=== PATIENT | male | born 1985 | race Caucasian/White ===

== ENCOUNTER 2024-03-09 23:51 | Emergency (ER) | payer OTHER, SELFPAY ==
[2024-03-09 23:55] VITALS: BP 135/76; PULSE 99; TEMP 36.7; O2SAT 99; BMI 27.1
--- NOTE | 2024-03-10 00:29 | ED.SKABFB1 ---
HPI - Skin/Abscess/Foreign Bdy General Chief complaint: Skin/Abscess/Foreign Body Stated complaint: bite - L leg Time Seen by Provider: 03/10/24 00:02 Source: patient and friend Related Data Home Medications ?Medication ?Instructions ?Recorded ?Confirmed buprenorphine 8 mg-naloxone 2 mg 1 film buccal BID 03/09/24 03/09/24 sublingual film Allergies Allergy/AdvReac Type Severity Reaction Status Date / Time No Known Drug Allergies Allergy Verified 03/09/24 23:58 Exam Constitutional Vital Signs, click to edit/add: Last Vital Signs Temp 98.1 F 03/09/24 23:55 Pulse 99 H 03/09/24 23:55 Resp 18 03/09/24 23:55 BP 135/76 03/09/24 23:55 Pulse Ox 99 03/09/24 23:55 Course Vital Signs Vital signs: Vital Signs Temperature 98.1 F 03/09/24 23:55 Pulse Rate 99 H 03/09/24 23:55 Respiratory Rate 18 03/09/24 23:55 Blood Pressure 135/76 03/09/24 23:55 Pulse Oximetry 99 03/09/24 23:55 Temperature 98.1 F 03/09/24 23:55 Pulse Rate 99 H 03/09/24 23:55 Respiratory Rate 18 03/09/24 23:55 Blood Pressure 135/76 03/09/24 23:55 Pulse Oximetry 99 03/09/24 23:55 Discharge Plan Discharge Stand Alone Forms: Portal Instructions Chief Complaint: Skin/Abscess/Foreign Body Clinical Impression: Cellulitis, Cellulitis and abscess of left leg Patient Disposition: Home, Self-Care Time of Disposition Decision: 00:27 Condition: Good Prescriptions / Home Meds: No Action buprenorphine-naloxone 8-2 mg film 1 film buccal BID Print Language: Singaporean Instructions: Cellulitis (ED), Abscess (ED) Additional Instructions: Use warm soaks and Icthammol ointment as discussed. Use antibiotics until gone. Return to the ED for fever, worsening redness,swelling, red lines up your thigh or any concerns.
--- NOTE | 2024-03-10 00:32 | ED_ITS ---
HPI - Skin/Abscess/Foreign Bdy General Chief complaint: Skin/Abscess/Foreign Body Stated complaint: bite - L leg Time Seen by Provider: 03/10/24 00:02 Source: patient and friend History of Present Illness HPI narrative: This 38-year-old male presents for evaluation of redness pain and swelling and purulent drainage from an area at his distal femur, medial and proximal to the left knee. The patient states he was recently cleaning out his car and there were spiders in his car. He thinks he may have been bit by a spider. Initially he stated that he had a red swollen area on the knee that opened up and there was a black hole in this area. It then spread to the surrounding area with multiple purulent filled papules adjacent to the initial area that was black and had a hole in it. The patient does have a history of IV substance abuse. He has never been a wrestler. He has not had any fever or body aches. He states that he has been using hot water on it in the shower and over the course of the past several days it has opened up and is draining purulent drainage. He does not have any body aches. He does not have a history of MRSA. There are no additional areas of skin infection. He does not have any sore throat or oral infection. He has no chest pain or shortness of breath. Related Data Home Medications ?Medication ?Instructions ?Recorded ?Confirmed buprenorphine 8 mg-naloxone 2 mg 1 film buccal BID 03/09/24 03/09/24 sublingual film Allergies Allergy/AdvReac Type Severity Reaction Status Date / Time No Known Drug Allergies Allergy Verified 03/09/24 23:58 Review of Systems ROS Status of ROS 10 or more systems reviewed and unremark able except as noted in history and below Exam Narrative Exam Narrative: Nurses note and vital signs reviewed and patient is not hypoxic. General: The patient appears well and in no apparent distress. Patient is resting comfortably on cart. Skin: Warm, dry, no pallor noted. There is no rash noted. Healed needle track sarkar on both upper extremities.See note in Musculoskeletal section Head: Normocephalic, atraumatic Eye: Normal conjunctiva, no drainage, EOMI. PERRL Ears, Nose, Mouth, and Throat: oral mucosa is moist. Nares patent. Mouth without vesicles. Cardiovascular: Regular Rate and Rhythm, no murmurs, rubs or gallops appreciated Respiratory: Patient is in no distress, no accessory muscle use, lungs are clear to auscultation, no wheezing, rales or rhonchi Back: non-tender, no CVA tenderness bilaterally to percussion. Musculoskeletal: at the left distal femur, medial aspect there is an anival roximately 6cm x 4 cm area of redness with mild induration, in the center of this area is approx 6 pustules that are draining purulent material (this was cultured). The left knee is not tender, erythematous and does not appear to be involved in this skin infection Neurological: A&O x4, normal speech Psychiatric: Cooperative Constitutional Vital Signs, click to edit/add: Last Vital Signs Temp 98.1 F 03/09/24 23:55 Pulse 99 H 03/09/24 23:55 Resp 18 03/09/24 23:55 BP 135/76 03/09/24 23:55 Pulse Ox 99 03/09/24 23:55 Course Vital Signs Vital signs: Vital Signs Temperature 98.1 F 03/09/24 23:55 Pulse Rate 99 H 03/09/24 23:55 Respiratory Rate 18 03/09/24 23:55 Blood Pressure 135/76 03/09/24 23:55 Pulse Oximetry 99 03/09/24 23:55 Temperature 98.1 F 03/09/24 23:55 Pulse Rate 99 H 03/09/24 23:55 Respiratory Rate 18 03/09/24 23:55 Blood Pressure 135/76 03/09/24 23:55 Pulse Oximetry 99 03/09/24 23:55 MDM - Skin/Abscess/Foreign Bdy MDM Narrative Medical decision making narrative: This 38-year-old male with a history of substance abuse including IVDU since for evaluation of one week of redness, pain, swelling and now development of purulent drainage at his distal left femur just proximal to his knee. He states the area started out looking like a spider bite with a black hole in the center. He states the area was more swollen and tender and after several days of using hot water in the shower has become what appears to be an area of cellulitis wiith a central area of abscess. There are approximately 6 purulent filled pustules in the center of this area. The skin was cleaned with Betadine and a moderate amount of purulent drainage was expressed and cultured. Sterile dry dressing was then placed by myself. I suggested that an IV placed for a dose of IV antibiotics and routine lab work but the patient declined stating that since he has a history of IV drug use it was too difficult to get a line in him. He was medicated with a dose of oral clindamycin. Culture of the infection is pending although I explained to him that I suspect that it is MRSA. He will be discharged home with wound care supplies such as 2 containers of 4 x 4's and extra kerlex. He was instructed to return for fever, worsening pain, lymphangitic streaking or any concerns. Discharge Plan Discharge Stand Alone Forms: Portal Instructions Chief Complaint: Skin/Abscess/Foreign Body Clinical Impression: Cellulitis and abscess of left leg Patient Disposition: Home, Self-Care Time of Disposition Decision: 00:27 Condition: Good Prescriptions / Home Meds: No Action buprenorphine-naloxone 8-2 mg film 1 film buccal BID Print Language: Cuban Instructions: Cellulitis (ED), Abscess (ED) Additional Instructions: Use warm soaks and Icthammol ointment as discussed. Use antibiotics until gone. Return to the ED for fever, worsening redness,swelling, red lines up your thigh or any concerns.
[2024-03-10] MEDS: CLINDAMYCIN HCL 150 MG CAPSULE 600 MG PO (00:49)
== END 2024-03-10 01:05 | disposition home or self-care (01) ==
PROVIDERS: Emergency Provider Emergency Medicine; Family Provider Family Medicine
DX: L03.116 Cellulitis of left lower limb (principal); F19.11 Other psychoactive substance abuse, in remission
CPT/HCPCS: 87070; 87150; 87186; 87205; 99283

== ENCOUNTER 2024-05-02 20:29 | Emergency (ER) | payer OTHER, SELFPAY ==
[2024-05-02 20:45] VITALS: BP 152/93; PULSE 85; TEMP 36.5; O2SAT 96; BMI 25.8
--- NOTE | 2024-05-02 20:53 | ED.EYEPROB1 ---
HPI - Eye Problem General Chief complaint: Eye Problems Stated complaint: foreign Object in Eye Time Seen by Provider: 05/02/24 20:47 Source: patient Mode of arrival: walk-in Limitations: no limitations History of Present Illness HPI Narrative: This 38-year-old male presents for evaluation of a foreign body in his left eye. The patient states he was underneath a car cutting metal with a saws all yesterday when he felt something fly into his eye. He has a visible foreign body at the 6 o'clock position overlying the iris. He states that every time he closes his eyelid he can feel it scratching and burning. He does not wear glasses or corrective lenses. His last tetanus shot was approximately 1 year ago. No additional injuries or complaints. Related Data Home Medications ?Medication ?Instructions ?Recorded ?Confirmed buprenorphine 8 mg-naloxone 2 mg 1 film buccal BID 03/09/24 05/02/24 sublingual film Allergies Allergy/AdvReac Type Severity Reaction Status Date / Time No Known Drug Allergies Allergy Verified 05/02/24 20:51 Review of Systems ROS Status of ROS 10 or more systems reviewed and unremarkable except as noted in history and below Exam Narrative Exam Narrative: Vital signs and Nursing Notes reviewed: He is afebrile with a normal pulse, blood pressure is elevated at 152/93, he is not hypoxic with pulse ox of 96% on room air General: Awake, alert, oriented, no acute distress, lying comfortably on the stretcher HEENT: Normocephalic atraumatic, mucous membranes are moist and pink, left conjunctiva is injected with a visible foreign body at the 6 o'clock position overlying the iris. Neck: Supple, no meningeal signs, no anterior or posterior cervical lymphadenopathy Chest: Lungs are clear to auscultation with good air entry, there is no wheezing rhonchi or rales appreciated no accessory muscle use, patient is speaking in complete sentences-no chest wall tenderness to palpation CVS: Regular rate and rhythm S1-S2, no murmurs rubs or gallops, pulses are brisk and equal bilaterally ABD: Soft, nondistended, nontender, no rebound guarding or rigidity, bowel sounds are normal, no pulsatile masses appreciated Extremities: Moving all extremities, no lower extremity tenderness or swelling noted, negative Homans' sign, pulses are brisk and equal bilaterally Skin: Normal in appearance without rash,pallor, petechiae or purpura Neuro: No focal deficits Constitutional Vital Signs, click to edit/add: Last Vital Signs Temp 97.7 F 05/02/24 20:45 Pulse 85 05/02/24 20:45 Resp 16 05/02/24 20:45 BP 152/93 H 05/02/24 20:45 Pulse Ox 96 05/02/24 20:45 O2 Del Method Room Air 05/02/24 20:45 Course Vital Signs Vital signs: Vital Signs Temperature 97.7 F 05/02/24 20:45 Pulse Rate 85 05/02/24 20:45 Respiratory Rate 16 05/02/24 20:45 Blood Pressure 152/93 H 05/02/24 20:45 Pulse Oximetry 96 05/02/24 20:45 Oxygen Delivery Method Room Air 05/02/24 20:45 Temperature 97.7 F 05/02/24 20:45 Pulse Rate 85 05/02/24 20:45 Respiratory Rate 16 05/02/24 20:45 Blood Pressure 152/93 H 05/02/24 20:45 Pulse Oximetry 96 05/02/24 20:45 Oxygen Delivery Method Room Air 05/02/24 20:45 MDM - Eye Problem MDM Narrative Medical decision making narrative: Procedure note: Foreign body removal left eye. The left eye was infiltrated with tetracaine and when anesthesia was obtained, cotton-tipped applicator was used to dislodge the foreign body but this did not dislodge it, a 22-gauge needle was then used, this broke the foreign body in half but it still did not completely remove it, and ophthalmic drill was then used to completely remove the foreign body. There was no residual rust ring. Erythromycin ointment was given to the patient and he was dispensed with the ointment to use every 4 hours. He was also given a prescription for Cipro ophthalmic solution to use in addition to the erythromycin ointment or if he runs out of the ointment. He was encouraged to follow-up with outpatient Ophthalmology: And also encouraged to get safety glasses to wear when he is working on his car. Discharge Plan Discharge Stand Alone Forms: Portal Instructions Chief Complaint: Eye Problems Clinical Impression: Acute foreign body of left cornea Patient Disposition: Home, Self-Care Time of Disposition Decision: 21:54 Condition: Good Prescriptions / Home Meds: No Action buprenorphine-naloxone 8-2 mg film 1 film buccal BID Print Language: Vietnamese Instructions: Eye Foreign Body (ED) Referrals: Physician,Non-Staff, MD [Primary Care Provider] - 1 week
[2024-05-02] MEDS: ERYTHROMYCIN OP OINT 0.5% 1 GM TUBE OP (22:00)
[2024-05-02] MEDS: TETRACAINE HCL 0.5% OP SOL 80 DROP/4 ML BOTTLE OP (22:00)
[2024-05-02] MEDS: FLUORESCEIN SODIUM 1 MG STRIP OP (22:01)
== END 2024-05-02 22:07 | disposition home or self-care (01) ==
PROVIDERS: Emergency Provider Emergency Medicine; Family Provider Family Medicine
DX: T15.02XA Foreign body in cornea, left eye, initial encounter (principal); W44.9XXA Unspecified foreign body entering into or through a natural orifice, initial encounter
CPT/HCPCS: 65220; 99283

== ENCOUNTER 2025-09-08 20:44 | Emergency (ER) | payer OTHER, SELFPAY ==
--- OUTSIDE RECORDS SUMMARY | 2025-09-08 20:51 | XMS_ITS | CCD ---
Author Organization [facility] Care Team Providers Care Statistics Manager Name Role Phone Willy Pena Unavailable Unavailable Mira Newton Unavailable Unavailable ROMAN ROJAS Unavailable Unavailable Mira Newton Primary Care Physician Unavailab Mira Hager Unavailable MIRA NEWTON Primary Care Unavailable MIARNDA THOMPSON Attending Unavailable MIRA NEWTON Primary Care Unavailable HAO PULIDO Attending Unavailable MIRA NEWTON Primary Care Unavailable Mira Newton Primary Care Provider Willy Pena Primary Care Physician Unavaila Mira Toscano Primary Care Provider [phone] Allergies Allergy Classification Reported Allergen(s) Allergy Type Date of Onset Reaction(s) Facility (9 sources) -No Environmental Allergies Allergy to substance (disorder) [facility] Work Phone: (2 sources) venlafaxine Drug Allergy 9 Nausea, Vomiting [facility] Work Phone: (2 sources) busPIRone; Translations: [buspirone] Drug Allergy [facility] Work Phone: (2 sources) cloNIDine; Translations: [clonidine] Drug Allergy [facility] Work Phone: (1 source) Codeine Drug Allergy 9 [place], [place] Medications Current Medications Medication Drug Class(es) Dates Sig (Normalized) Sig (Original) buprenorphine 4 mg / naloxone 1 mg oral strip (7 sources) Partial Opioid Agonist, Opioid Antagonist Start: 04-11-2019 Suboxone 4-1MG Sublingual Film 04/11/2019 Provider: Start: 01-11-2019 End: 04-11-2019 Suboxone 8-2MG Sublingual Fi lm 01/11/2019 - 04/11/2019 Provider: Start: 12-17-2018 End: 12-17-2018 Suboxone 8-2 MG SL FILM 11/23 - 12/17/2018 Provider: Conversion Provider End: 07-09-2019 buprenorphine-naloxone (SUBO XONE) 8-[address] film [address] 1 Film under the tongue daily. 0 07/09/2019 Discontinued (Therapy completed) carbamide peroxide 65 mg/ml otic solution (1 source) Start: 07-09-2019 End: 08-08-2019 carbamide peroxide (DEBROX) 6.5 % otic solution Place 5 drops into the left ear 2 times daily 1 Bottle 1 07/09/2019 08/08/2019 Active cyclobenzaprine hydrochloride 10 mg oral tablet (11 sources) Muscle Relaxant Start: 01-23-2019 Cyclobenzaprin e HCl 10MG Oral Tablet 01/23/2019 Provider: Mira Newton CNP Start: 11-02-2018 take 1 tablet by charis th twice daily as needed for pain cyclobenzaprine 10 mg oral tablet 11/02/2018 take 1 tablet (10 mg) by oral route 2 times per day as needed for muscle pain , may cause drowsiness Start: 11-02-2018 End: 11-02-2018 CYCLOBENZAPRINE 10 MG MISC 1 01/03/2018 - 11/02/2018 Provider: ibuprofen 800 mg oral tablet (20 sources) Nonsteroidal Anti-inflammatory Drug Start: 01-11-2019 End: 09-06-2019 Ibuprofen 800 MG Oral Tablet 09/06/2019 Provider: Mira Newton CNP Start: 12-17-2018 End: 12-17-2018 Ibuprofen 200 MG OR TABS - 12/17/2018 Provider: Conversion Provider Start: 11-02-2018 End: 12-14-2018 take 1 tablet by mouth three times daily as needed for pain ibuprofen 800 mg oral tablet 11/02/2018 take 1 tablet (800 mg) by oral route 3 times per day as needed for pain , take with food take 1 tablet by charis th every six hours as needed for pain ibuprofen (ADVIL;MOTRIN) 800 MG tablet Take 800 mg by mouth every 6 hours as needed for Pain 0 Active ibuprofen 200 mg oral tablet naloxone hydrochloride 40 mg/ml nasal spray (2 sources) Opioid Antagonist Start: 09-06-2019 Narcan 4 MG/ 0.1ML Nasal Liquid 09/06/2019 Provider: Mira Newton CNP OLANZapine 10 mg oral tablet (2 sources) Atypical Antipsychotic Start: 09-06-2019 ZyPREXA 10 MG Oral Tablet 09/06/2019 Provider: Mira Newton CNP sertraline 50 mg oral tablet (2 sources) Serotonin Reuptake Inhibitor Start: 09-06-2019 Zoloft 50 MG Oral Tablet 09/06/2019 Provider: Mira Newton CNP Completed/Discontinued Medications Medication Drug Class(es) Dates Sig (Normalized) Sig (Original) acetaminophen 325 mg / HYDROcodone bitartrate 5 mg oral tablet (1 source) Opioid Agonist Start: 07-09-2019 End: 07-09-2019 HYDROcodone-aceta minophen (NORCO) 5-325 MG per tablet 2 tablet busPIRone hydrochloride 5 mg oral tablet (5 sources) Start: 11-30-2018 End: 12-14-2018 take 1 tablet by mouth three times daily for anxiety buspirone 5 mg oral tablet 11/30/2018 12/14/2018 take 1 tablet (5 mg) by oral route 3 times per day for anxiety dizziness Start: 11-30-2018 End: 11-30-2018 BUSPIRONE 5 MG [facility] [place]/30/19 - 11/30/2018 Provider: FLUoxetine 20 mg oral capsule (9 sources) Serotonin Reuptake Inhibitor Start: 11-02-2018 End: 11-30-2018 take 1 capsule by mouth once daily Prozac 20 mg oral capsule 11/02/2018 11/30/2018 take 1 capsule (20 mg) by oral route once daily patient couldnt tolerate Start: 11-02-2018 End: 11-02-2018 PROZAC 20 MG MISC 11/02/2018 - 11/02/2018 Provider: gabapentin 300 mg oral capsule (12 sources) Anti-epileptic Agent Start: 01-11-2019 End: 09-06-2019 Gabapentin 300MG Oral Capsule 01/23/2019 - 09/06/2019 Provider: Mira Newton CNP Start: 12-14-2018 take 1 capsule by mo ut three times daily gabapentin 300 mg oral capsule 12/14/2018 take 1 capsule (300 mg) by oral route 3 times per day Start: 12-14-2018 take 1 capsule by mo ut three times daily gabapentin 300 mg oral capsule 12/14/2018 take 1 capsule (300 mg) by oral route 3 times per day Start: 12-14-2018 End: 12-14-2018 [facility] - 12[facility]14[facility]2018 Provider: Start: 11-30-2018 take 1 capsule by mo ut three times daily gabapentin 300 mg oral capsule 11/30/2018 take 1 capsule (300 mg) by oral route 3 times per day Start: 11-30-2018 End: 11-30-2018 GABAPENTIN 300 mg [facility] [place] - 11/30/2018 Provider: hydrOXYzine hydrochloride 50 mg oral tablet (9 sources) Antihistamine Start: 11-02-2018 End: 11-30-2018 take 1 tablet by mouth every eight hours as needed for anxiety hydroxyzine HCl 50 mg oral tablet 11/02/2018 11/30/2018 take 1 tablet (50 mg) by oral route every 8 hours as needed for anxiety , may cause drowsiness pt couldnt tolerate PARoxetine hydrochloride 20 mg oral tablet (7 sources) Serotonin Reuptake Inhibitor Start: 01-11-2019 End: 04-11-2019 PARoxetine HCl 20MG Oral Tablet 01/11/2019 - 04/11/2019 Provider: Start: 11-30-2018 End: 11-30-2018 take 1 tablet by mouth once daily paroxetine HCl 20 mg oral tablet 11/30/2018 take 1 tablet (20 mg) by oral route once daily Problems Active Problems Problem Classification Problem Date Documented Date Episodic/Chronic Adjustment disorders (8 sources) Adjustment disorder with depressed mood Onset: 11-02-2018 Chronic Anxiety disorders (20 sources) Anxiety state, unspecified; Translations: [Generalized anxiety disorder] Onset: 11-02-2018 Chronic Immunizations and screening for infectious disease (4 sources) Encounter for screening for other viral diseases; Translations: [Other specified abnormal immunological findings in serum] Onset: 11-30-2018 Episodic Mood disorders (8 sources) Severe recurrent major depression without psychotic features; Translations: [Major depressive affective disorder, single episode, moderate] Onset: 12-14-2018 Chronic Other aftercare (2 sources) Other rodent exterminator (current) drug therapy; Translations: [Other halfway (current) drug therapy] Onset: 11-30-2018 Episodic Other connective tissue disease (7 sources) Other affections of shoulder region, not elsewhere classified Onset: 11-02-2018 Episodic Other ear and sense organ disorders (1 source) Impacted cerumen in left ear; Translations: [Impacted cerumen of left ear] Other nutritional; endocrine; and metabolic disorders (2 sources) Overweight; Translations: [Overweight] Onset: 04-11-2019 Chronic Other nutritional; endocrine; and metabolic disorders (7 sources) Body Mass Index 26.0-26.9, adult Onset: 11-02-2018 Episodic Other nutritional; endocrine; and metabolic disorders (5 sources) Body Mass Index 25.0-25.9, adult Onset: 11-30-2018 Episodic Other screening for suspected conditions (not mental disorders or infectious disease) (4 sources) Encounter for screening for lipoid disorders; Translations: [Encounter for screening for diabetes mellitus] Onset: 11-30-2018 Episodic Substance-related disorders (7 sources) Tobacco use disorder; Translations: [Opioid abuse] Onset: 11-02-2018 Chronic Past or Other Problems Problem Classification Problem Date Documented Da te Episodic/Chronic Spondylosis; intervertebral disc disorders; other back problems (8 sources) Backache, unspecified; Translations: [Acute low back pain] Onset: 11-02-2018 Episodic Unclassified (4 sources) Finding of body mass index; Translations: [Body Mass Index] Onset: 04-11-2019 Results Test Name Value Interpretation Reference Range Facil ity Legal Correspondence Officeo n 02-25-2022 Legal Correspondence Office [id number]# 1.00CD:127 Normal [facility] Prescriptions/Work Noteson 1 01-05-2021 Prescriptions/Work Notes [id number]# 1.00CD:127 Normal [facility] Comment on above: Other Comment: wrong folder Senior Living Documentson 10-13-2021 Senior Living Documents Senior Living Nurse Visit 14 day Health Appraisal PPD Results PPD Result (mm of Induration): _0.0 mm Read on: 10/07/2021 Problem List/Past Medical History Ongoing Smoker 24-MAY-2014 12:37:00<$> Historical Arthritis Back Back injury Sciatica Procedure/Surgical History back fusion. Medications Bromfed DM oral syrup, 5 mL, Oral, QID, PRN Suboxone 8 mg-2 mg sublingual film, SubLingual Allergies No Known Allergies Social History Alcohol - Denies Alcohol Use, 06/29/2011 Substance Abuse - High Risk, 10/27/2019 Heroin, Daily, IV drug use: Yes. Drug use interferes with work/home: Yes. Ready to change: No., 10/27/2019 Tobacco Current Every Day Smoker, Cigarettes, 07/03/2014 Current, Cigarettes, 10 per day., 04/29/2011 Cigarettes, 03/24/2010 [facility] Senior Living Documentson 10-06-2021 Senior Living Documents Senior Living Nurse Visit 14 day Health Appraisal Date of Appraisal: 10/05/2021 Booked Date: 09/29/2021 Court or Release Date: Unknown Did inmate come from another facility: No PCP: Paola Decker ([facility]) Specialist: DANIA Pharmacy: [facility] [place] Have you ever had suicide attempts: No If yes, when was your last attempt and how: NA Are you currently under the care of a practitioner for any reason: No If yes, please explain: NA Date Receiving Screen Evaluation Form reviewed: 09/29/2021 Date Suicide Prevention Health Form reviewed: 09/29/2021 Has the sick call procedure has been explained: Yes Does Inmate verbalize understanding: Yes Do you or have you ever had any of the following: Recent Head Injury: No Persistent Headaches: No Vertigo/Dizziness/ Fainting: No Stroke/TIA: No Seizure Disorder: With withdrawals Eye/Vision Problems: No Ear/Nose/Throat Problems: No Dental Problems: No Problems Breathing/ Asthma: Yes Genitourinary Problems: No Diabetes: No Gastrointestinal Issues: With recent withdrawals High/Low Blood Pressure: No Heart Problems: No Recent Broken Bones or deformities: No Arthritis/ Joint Mobility Issues or Deformities: Knees Back/Neck Problems: Lower Back Skin Problems, Rashes, Open Wounds: No STDs (recent, past, or present): No Hepatitis Positive: Hep C HIV Positive: No Bleeding/Other Blood Disorder: No Body Infestation (Lice, Crabs, Scabies, Etc): No Do you have a history of: Violence towards others: No Being victimized: No Being sexually assaulted: No Sexually assaulting others: No Is this person obviously a higher risk for victimization or assault: No How does the patient identify him/herself in terms of gender: Male SKIN: WNL Skin Color: Appropriate for race and age Turgor: WNL Bruises: No Wound/Lesions: No Rash: No Jaundice: No Edema: No Clarify and describe: NA Is Physical Therapy needed: NA CARDIOVASCULAR: No Arrhythmia: No Chest Pain: No Clarify yes response: NA RESPIRATORY: No Dyspnea: No Cough: No Clarify yes response: NA [Mental Status Exam] TB Skin Test Have you ever had tuberculosis: No Have you ever had a positive TB skin test: No PPD given on: 10/05/2021 Location given: Left forearm Date vial opened: 09/20/2021 Lot number: [id number] Expiration date: 09/12 PPD Comments: _ Inmate states they have had the following Immunizations:All childhood immunizations. 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 Have you ever had seizures or other symptoms of withdrawal after stopping the use of alcohol/drugs? Yes Do you wish to attend AA Meetings? Yes Senior Living Assessment 10/05/21 13:19:00 Senior Living Assessment Entered On: 10/05/2021 13:22 EST Performed On: 10/05/2021 13:19 EST by Valeriy Tao LPN Covid-19, MERS, Ebola Screen *Contact With Person With Highly Contagious Disease Like Ebola/MERS/COVID-19 AND Have One or More of the Symptoms Below : No *Travel to a Country With Wide-Spread Ebola/MERS/COVID-19 in the Past 21 Days AND Have One or More of the Symptoms Below : No Patient Reported Covid-19 Testing : Yes Patient Reported Covid-19 Testing Result : Negative Patient Reported Covid-19 Testing Date Question : Yes Patient Reported Covid-19 Testing Where : [facility] Patient Reported Covid-19 Testing When : 09/29/2021 EST *Verify Droplet, Contact Precautions for Ebola (Reference for CDC) : N/A *Verify Airborne, Droplet Precautions for MERS/COVID-19 : N/A Valeriy Tao LPN 10/05/2021 13:19 EST Summary Height in Inches : 72 in Height/Length Measured : 182.88 cm(Converted to: 6 ft 0 in, 72.00 in) Weight Measured : 81.64 kg(Converted to: 180 lb 0 Ounces, 179.985 lb) Body Mass Index Measured : 24.41 kg/m2 Weight in Pounds : 179.608 Systolic Blood Pressure : 118 mmHg Diastolic Blood Pressure : 85 mmHg Blood Pressure Location : Left arm Blood Pressure Position : Sitting O2 Sat Resting/Exertion Alpha : Resting Peripheral Pulse Rate : 70 bpm Respiratory Rate : 18 br/min SpO2 : 99 % Temperature Oral : 36.1 DegC(Converted to: 97.0 DegF) Valeriy Tao LPN - 10/05/2021 13:19 EST Objective Data and Cognition Screening Cognition: Oriented To : Person, Place, Time Lvl of Consciousness : Alert Cognition: Speech : Normal Cognition: Behavior : Cooperative Cognition: Hallucinations : None Cognition: Mood and Affect : Calm Valeriy Tao LPN N - 10/05/2021 13:19 EST Problem List/Past Medical History Ongoing Smoker 24-MAY-2014 12:37:00<$> Historical Arthritis Back Back injury Sciatica Procedure/Jac (more content not included)... Normal [facility] COVID-19 ([facility] [place]on 09-24-2021 SARS-CoV-2 (COVID-19) RNA ITZEL+probe Ql (Unsp spec) Not detected Normal Not Detected [facility] Comment on above: Result Comment: This test result should be correlated with clinical presentations and medical history by a healthcare provider to determine its clinical significance. This assay was performed by a reverse transcriptase real-time polymerase chain reaction (rt PCR) method on the [employer] system. This test has been authorized only for the detection of nucleic acid from SARS-CoV-2, not for any other viruses or pathogens. This test has not been FDA cleared or approved. This test has been authorized by FDA under an Emergency Use Authorization (EUA). This test is only authorized for the duration of time the declaration on that circumstances exist justifying the authorization emergency use of in vitro diagnostic tests for detection and/or diagnosis of COVID-19 infection under section 564 (b) (1) of the Act, 21 U.S.C. 360 bbb-3 (b) (1), unless authorization is terminated or revoked sooner. Performed By: #### 2 [id number] ####[place] [address] SARS-CoV-2 (COVID-19) RNA ITZEL+probe Ql (Unsp spec) Pass Normal Pass [facility] Comment on above: Performed By: #### 2 [id number] ####[place] [address] Specimen source Nom (Unsp spec) Nasal Normal [facility] Comment on above: Performed By: #### 2 [id number] ####[place] [address] Employed in Healthcare NO [facility] Comment on above: Performed By: #### 2 [id number] ####[place] [address] First Test YES [facility] Comment on above: Performed By: #### 2 [id number] ####[address] [address] Hospitalized? NO [facility] Comment on above: Performed By: #### 2 [id number] ####[address] [address] ICU NO [facility] Comment on above: Performed By: #### 2 [id number] ####[address] [address] ? NO [facility] Comment on above: Performed By: #### 2 [id number] ####[place] [address] Resides in a Congregate Care Setting NO [facility] Comment on above: Performed By: #### 2 [id number] ####[address] [address] Symptomatic as defined by CDC YES [facility] Comment on above: Performed By: #### 2 [id number] ####[place] [address] [place] [address] Coding Summary.on 09-24-2021 Coding Summary. CD:[id number] G h0bWw+PGhlYWQ+HY0RROI eG71biYIdiE6LA3mTIX4Y IZFGSSSVTS1RZA8csGD8T DzjB9GzizEw KpfxfIQzQS21WGe0CJK3y GjsPTvfyW4xsPFmU8x5Uj LqXJ22nA16YAhdEBDpPpU 3LjZpbjsgbWFy Z7qeGgWzhTZqBdd+PHRhY mxlIHdpZHRoPScxMDAlJy HjqEoyOO8cRf0hXFXsASX vbGxhcHNlOiBj z0qpDHJtABnwVK8dhJpuF 8MblCE2WUJib7b5Lw02uT I+KRTxEYU3dZvhOZcpw09 4ZvQzg7jrGGE5 tBHmNSycWBP4N51xf9Y5D JQjULOaGJT2vER7fR0ssH yzjaseE2AlrBLpPuK6CZG 8oXHuaA9pwTni nbumnE3gCga+J58GGR2EA LUNXM6JBri1U7XbHezrxW I+SA71TVBvWR73yXHxpGG iw2urgHq5VrLq BGNgCVX8lTvbMJddt5IaS AJqT58wqSPaf5H4WWQqtK xcsSUzQmDhxAZ5tU9pKGy qarwna5spzjev Hjhrn9wxgy32dC83V15mD JbhVVRzFXH4RPJxSAQetT lust8glK5vDk0+VVdja5o qg7gcvVl4ZiPf UWMpvaTmxPnpXNO7v5FaP e72E1MajAmig3UyOqb9tq 55kDJzm1B5nRX7KZdoGMK mlQ1qXBivWjM6 PYWqQeCvsX78nZGpPFgwW x3roBtssPnuTL4wREFsnc nvFBDazG5kODGfiPKtmRx wYN5iGRRpiecy y426GlRfFNO4MGCaePUyN 4RfsE9vRgEqGWDsUKOsK8 RqaXLvNGdcO191EVjmCwM 4FNHbhkHqV8Um XVKdfDcfZmJ4b7X5Mt0Qz 1JxogliGYP5GFgtRCMhFf MoApIiGyH7P4QrEvf7NUK vuAldUV4pC0Kc BOOcwumzbcnzfRB2UGLgW HIquO39wPLnSMmlLw1do8 P1j908NVWmZICfpV39Oc1 udDogMTBwdCBU xO2fhpfcl7bkfyfvGeQsN OQyKFg2SNu8MWDtdIpwZe JyHXI9FjM5AXD9iJKraS1 ddLruouceeN9o Oyc+T07zzY0aCJS1UWB3p xkbMIDyweNmFL49QH49M6 RyPjwvdGFibGU+PGRpdiB qwHtjKZ7rGaEr z1joc0TsBXweA9FsLQSpJ TbpPwk9PCQmHDY0mIA6fA 3eULQlCHams5Z9vKF8J6X yxyHvpd0rg2bx EGGzHIcyA91jcFPhj6M5R EOecSH6DCNjrQvoAdMiqE 93Oyc+IMAtoJigb1UmVbj yo6lvl1ubmYo5 YiMzXHLaeeDtqTtdBJQ2k 9OjYx55S91gPBmkHUEaDJ GrQDZyKOCozGgusc3ucY3 wIi8+PGNvbCB3 uPC2hF4kTHOqFgI6HQmsS 357TsUmfIAoYgrzi9uql3 bujVi5NfGtESRjyvBaqOu hHHI5q3YnSk73 L01qGOboJNIsCUOiAAFoN KChuQyiym6znM8xQd7+PC 7qu0uaiu50yJ47eXX+PHR rSIM3eTvlEPoc ZXHtdS6fQVxeOuE1ZMQpC qItkO87mEKxVZglJz2gaL ppeOmvMR8xTLYpbddje66 9KwQoy2fyQYVw iNMsKMduULR4A79km8J5K KPoRFYbCAT0hMS9iH4ruH lnbjogbGVmdDsgdmVydGl eGFfzCKnxD722 IHRvcDsnPlBhdGllbnQgT qFnSVr5Y0RfTrz3HBYoaL lrGC1mjKReZMyeNr7vjHv sfYrsYV3xNBWv igixx730KaNtw1tvOXTzx LUaCIdpXRT6H41gn4Y7KE CeYZAeINI2mQF0hN9ugKa nbjogbGVmdDsg ttGyjAneZBdiNIgrE608N HRvcDsnPkJpcnRoIERhdG T8VT84NK46dLRwn2V8sDS 9J0GyZTMvlqqa fodlpIQ8YLMyJXGevE91X z4eiSalVk8kUHZtGAG6AR OnqFXmC5PggP0eWiLkOTB pJYDpV9OosODm OCnuR115COdzUcO9WNLwj lRzA9ZtWYCsrDdnWyN9t5 B5Ap2MB1E0DL88CM62mPY si3O7nLA2Z4Kf GGMkvqxkumantBO3PWBeG RVbrE60Zz0ruLxdTv3tKG VkQWO4ZVVxuEPkP7PctO5 yOiAjMDAwMDAw R4KydZPsQRqaJ977EUjbN mX0KWQxhlTtG1DtNXMyuL qzGiK7c8N9Aw2RHLv5VC5 5ZG34kOGsb6D3 bVN1B5XrYKZwklhouxide RT7LWFePJActD88Va5qlZ bhSf9zXQQdRXB9KNTfkZM gP2CmjP4cTiIr ZWEdJVDlS5MfkBSeWHfeH 365PXdgMoS4RVEvavBrK7 JrMIHlzGfsAuU5z2M9Zn3 UKHOwTU16UIY5 aCL2PK34LE98J7TrAsovz GFibGU+PHRhYmxlIHdpZH RoPScxMDAlJyBzdHlsZT0 vOd9zVKKjNZAk pKitxSRkSpRyf4vtRRCrM EilVW1hpAtmC0VzzZL9TN Squ8b1Mn40L76mZ9NzvAP +GUHitYK2kFL1 sA2vBcVkPoW8AHbgX698K sVrnQWmQpozn8zbc4zxsC k3NrH3NQJfghMmmLzuAMF 3a8KoIq96W82k IHdpZHRoPSIxNSUiIHZhb Ylcdn0gyM3jJr4+PGNvbC S9lBU5qL5sPdUcAiG5QNc fN821OfHxcBNg Nwixq3gnd6iaoXu2GrYiZ RVxxtOxwQspNIM4n6PaGo 01R9YkeQwvv8OiXtk4wa9 7kJZbl7C0rMK4 V7JzFKZhnddegBBhzOsiH L4pHYLpybjhDDNxlI0sNB CkA8o9KwUoCeT8PAihA3F sxbX3NPDwfIDb DJykOCT1X69pu3W0FTTlB PQrVII9lZS2tR7rkFejku ogbGVmdDsgdmVydGljYWw zODaqI643YUXo yDutNUDvaV7wSRDjlDPcp WcjPD3eLEViofmhPgIZHX 9WFEDBAX0IWPYTGK76MZ5 3tNDcd4R1iWQ5 Z4VvCJZdrwocamiqdMX5D RRnBXSfbD81nNUaJMozVc 3hd3Y7b885RSSeXSOweG2 5Dp6qdSvcIBJx fSZPbN0hqrklm8ntfohzH lAxPPCcGEs0KWi9FCRciZ ggYqPeRNJ5MlK3BJC4fBU obK4xwAitglqr lJ7zGdr+HAAwJHAvFKj8T jwvdGQ+UGTbBYS1eApzXU luZDLvgM1hJBErC6j7MbN xXxJ0SZvaI1Th RRYakmkkLw52vV2dVaKbD iH6XXckH6ZxctJ7YEJmlB EqDYofDOG7Z81kw6Q1ZZM kBFZeFHD0tOF8 mU3gwZbstuytaJRlrEumx aOggZhvOCisZCxvJ945RO KlpNpjGqC7UZscXZCgKV4 6VY62kLSbt0H3 uBC5K9DzWXBsipspvbgqc XW2ALItEGGclF50aKHpHE gnSc5rf4H8l032BEOfAAH crH54Ae3xpYag QQEybYTKkA5vcfbfm9aoe kiyVwWdQZJqSVq0AAc1AS UqlRvhZpCrKJZ3WmA8XCE 7nUXjuC3asLhc dpfphM6zVkx+TWFsZTwvd GQ+AIFqHYM6dEmjUWteKF IsuR5hYMHqK0i9IuDfDtR 6AVeyI5MbUSGk jiysMa47oX5vRnSbDuD1O HccO0UzfzD1ZSUhuCIoTA wpIUH2V19ic5F7RKZlQPI uEMQ5vIY6oW1l bGlnbjogbGVmdDsgdmVyd ZcwVNiaNVkzC370FFWfkO tfPiHwKTAnJE3qmWszzJC +NR99hi82A7Oy DounXzl7TKHiUYX1hON9r O0aCMTeHEudk3S4iOM1B9 QjkdEzry9ef7njDCTqNGi oL06tlDDct3R7 RRGevJI4QITenSsgWgGln G93Oyc+HTOjiHsfo5JrNm nmj2gtm6jdrNh8EhToWZP gdmFsaWduPSJ0 s5VwUi41S63uKKxaOKLrE AOjFCKmMCFuwWfliv3qlV 9wIi8+WKMsfWZ9xQG6tI7 kRvHkSwG7QSuu E822SpZbiREtAnheu7fsc 7igsYn7RdPwOOOfxePxpK kqTQO1b0VbHv91B8SyzLx oz7BnBlg1bv24 tLGyk6B0yXB3C0BtTDHsm pxtuLIjuJygUS9aLSGpcz ylUAJcjX4pWYGvZ9f4CqZ gRfJ5GZnpK8Ej idD7QAQhwGAzRSFidBSPs Y9wsmwwu4yvsyawSaUoEN TvXTh5HYc3ZTGkpLlpTwL mNKV8WvO8IOD6 mXPjyY1srNomdleqpS3dY yc+ZDa3j1fthJKePY5roG U0BL09XT27wRUwy3K3xDN 9K6RqDMTemvgm jeubbAZ5YRKrSMEeyJ72S q7gxIpmWn6aYVPwBEC4PQ YvaWJlL9TfmF2xEjGmZUC mPNCxH5OkfDBq YDtvZ626NBmfNuY8XVEwv xVtM7CuCYTuxOzpPgG3w3 F7Au7VRJ15YM72NN28eKM vh0S7rHF5U5Yx OEQubkvqeocygYW1WONdW QSxsN99Rl4frOlnRe3mVL MbFRT8IXKrcRSzY8UumQ4 yOiAjMDAwMDAw P3NeqTHcYPkfD334DSfgW pF4AHZhegGrE3XyHMLxlB enHzD9u4H5Ob0HBb92AV5 1TO70qHAqr0W3 rIZ6U9RiGORwfoxlmibyt EO2WXEuBCAmuA13Ac0ncK jcHu5mAXFwMZJ1TNLyyCJ jJ2KnaU9bQwGq ZQOyZCOiU1PxnALpTBrmM 862LHbrOnL5FKZyanKkG3 LoNVXeiUnbGwH6d9B1Rx1 WARpjuik1J6Sp PjwvdHI+IT46FBFuUC58x EYsiQOec1efwDv5MeTxSQ NrVCI5mVxiDCron1ZxKUK dC24qrEVzv2W4 IGNv (more content not included)... Normal [facility] Consent for Treatmenton Consent for Treatment [id number]#1 .00CD:127 Normal [facility] Discharge Instructionson Discharge Instructions [id number]# 1.00CD:127 Normal [facility] ED Clinical Summaryon 2020 ED Clinical Summary [place] [address] ED Clinical Summary Person Information Name: SUSIE SHINE [facility] Age: 35 Years : 1985 Sex: Male Language: Cape Verdean PCP: Jacky Sutton DO Marital Status: Single Visit Id: Visit Reason: Cough; COUGH, BODY ACHES Speciality: Acuity: 4 Enc Type: Emergency Med Service: Emergency Arrival: 09/24/2021 01:16:20 Discharge: 09/24/2021 02:29:33 LOS: 000 01:13 Checkin: 09/24/2021 01:16:20 Checkout: 09/24/2021 02:29:33 Dispo Type: Home (Routine DC) EVENTS: Event Name Event Status Request Date/Time Start Date/Time Complete Date/Time Arrive Complete 09/24/2021 01:16:20 09/24/2021 01:16:20 09/24/2021 01:16:20 Document Home Meds Request 09/24/2021 01:16:20 Triage Complete 09/24/2021 01:16:20 09/24/2021 01:33:36 09/24/2021 01:33:36 Bed Assign Complete 09/24/2021 01:24:47 09/24/2021 01:24:47 09/24/2021 01:24:47 Dr Exam Complete 09/24/2021 01:24:47 09/24/2021 01:28:57 09/24/2021 01:28:57 RN Exam Complete 09/24/2021 01:24:47 09/24/2021 01:34:31 09/24/2021 01:34:31 Registration Complete 09/24/2021 01:28:57 09/24/2021 02:04:15 09/24/2021 02:04:15 X-Ray Complete 09/24/2021 01:39:26 09/24/2021 01:47:18 09/24/2021 01:56:25 Pending Labs Inlab 09/24/2021 01:39:26 Lab Inlab 09/24/2021 01:39:26 Wet Read Request 09/24/2021 01:56:25 Reg Complete Request 09/24/2021 02:04:15 Discharge Complete 09/24/2021 02:08:09 09/24/2021 02:29:43 09/24/2021 02:29:43 Transfer Complete 09/24/2021 02:29:43 09/24/2021 02:29:43 09/24/2021 02:29:43 ADDRESS: [address] [place] [address] [address] [place] [phone] PHYS DOC NOTES: MEDICAL INFORMATION: Prescriptions Given: New Medications [facility] Pharmacy 1985, [address] [facility] [place], [place] [id number], [phone] azithromycin (azithromycin 250 mg Tab 5-day Dose Pack (Z-Xander)) 1 Packets By Mouth As Directed for 5 Days. as directed on package labeling. Refills: 0. brompheniramine/dextr omethorphan/PSE (Bromfed DM oral syrup) 5 Milliliter By Mouth 4 times a day as needed for cold symptoms. Refills: 0. guaifenesin (Mucinex 600 mg Tab-ER) 1 Tablets By Mouth every 12 hours for 7 Days. Refills: 0. Medications to Continue with No Changes Other Medications buprenorphine-naloxon e (Suboxone 8 mg-2 mg sublingual film) Sublingual. PATIENT EDUCATION INFORMATION: Instructions: Community-Acquired Pneumonia, Adult Follow up: With: Address: When: Jacky Hernadez, [address] [place] [address] Business (1) In 3 days 2021 Comments: Return to ED if symptoms worsen DIAGNOSIS: CAP (community acquired pneumonia) [facility] ED Note-Physicianon 09-24-20 ED Note-Physician Basic Information Time Seen: Alejandro Michele DO 09/24/2021 01:28 Chief Complaint pt to ED with c/o cough for last week with no improvement. denies fevers or SOB. History of Present Illness 35-year-old male to the emergency department chief complaint of cough that is been ongoing for a week. He reports the cough is productive of purulent sputum. He reports chills, body aches, nausea. He denies any chest pain or shortness of breath. No aggravating or alleviating factors. No therapies tried at home. Review of Systems A 10 point review of systems is negative except as noted above. Medical and Surgical History: Reviewed and noted Social history: Lives at home Tobacco: Denies Physical Exam Vitals & Measurements T: 37.1 ?C (Oral) HR: 100(Peripheral) RR: 16 BP: 142/79 SpO2: 97% HT: 182 cm HT: 182.0 cm WT: 91 kg WT: 91.0 kg BMI: 27.47 VITALS: I have reviewed the triage vital signs. GENERAL: Well developed, well appearing adult in no acute distress. NEURO: Alert and oriented. Moves all extremities. Face is symmetric and expressive. EYES: PERRL. No scleral icterus or conjunctival injection. No discharge. HENT: Normocephalic, atraumatic. Hearing is grossly intact. Nares grossly patent and without discharge. Mucous membranes moist. NECK: No JVD. Patient moves neck without restriction. CARDIO: Rhythm regular. Normal rate. No murmur, rub, or gallop. Pulses equal bilaterally in the upper and lower extremity. No lower extremity edema. PULM: Lungs clear to auscultation in all samuel. No wheezes, rales, or rhonchi. No conversational dyspnea. No splinting, stridor, or accessory muscle use. GI/: Abdomen is soft and non-tender. Normoactive bowel sounds. EXTREMITIES: Symmetric muscle bulk. No joint swelling. No clubbing, cyanosis, or deformity. SKIN: Warm and dry. Normal turgor. No rash or lesions appreciated. PSYCH: Mood, affect, and interaction is appropriate to the setting. Medical Decision Making Well-appearing 35-year-old male to the emergency department chief complaint of flulike symptoms for the last week. Cough is productive. Chest x-ray and Covid swab ordered. Patient agrees with this plan. Chest x-ray with streaky infiltrates. This given the patient's productive cough we will treat his commune acquired pneumonia. Azithromycin and Bromfed prescribed. Follow-up with PCP. Covid results pending. Discussed with patient the need to quarantine. Return precaution discussed. Patient was discharged home. Assessment/Plan CAP (community acquired pneumonia) (J18.9: Pneumonia, unspecified organism) Orders: azithromycin, = 1 packet(s), Oral, As Directed, as directed on package labeling, X 5 day(s), # 6 tab(s), Refills(s) 0, Pharmacy: [facility] 1984, 182, cm, 09/24/21 1:33:00 EDT, Height/Length Dosing, 91, kg, 09/24/21 1:33:00 EDT, Weight Dosing brompheniramine/dextr omethorphan/PSE, 5 mL, Oral, QID for cold symptoms, 200 mL, Refill(s) 0, [facility] 1984, 182, cm, 09/24/21 1:33:00 EDT, Height/Length Dosing, 91, kg, 09/24/21 1:33:00 EDT, Weight Dosing guaifenesin, 600 mg = 1 tab(s), Oral, q12hr, X 7 day(s), # 14 tab(s), Refills(s) 0, [facility], 182, cm, 09/24/21 1:33:00 EDT, Height/Length Dosing, 91, kg, 09/24/21 1:33:00 EDT, Weight Dosing COVID-19 ([facility]) XR Chest Single View Disposition Plan Patient Discharge Condition Stable Discharge Disposition Home Discharge Prescription List Prescriptions azithromycin 250 mg Tab 5-day Dose Pack (Z-Xander), 1 packet(s), Oral, As Directed Bromfed DM oral syrup, 5 mL, Oral, QID, PRN Mucinex 600 mg Tab-ER, 600 mg= 1 tab(s), Oral, q12hr Follow-up With When Contact Information Jacky Link In 3 days 2021 EDT [address], [address] [facility] [place] [address]- pushd (1) Additional Instructions: Return to ED if symptoms worsen Patient Education Community-Acquired Pneumonia, Adult Problem List/Past Medical History Ongoing Smoker 24-MAY-2014 12:37:00<$> Historical Arthritis Back Back injury Sciatica Procedure/Surgical History back fusion. Medications Inpatient No active inpatient medications Home azithromycin 250 mg Tab 5-day Dose Pack (Z-Xander), 1 packet(s), Oral, As Directed Bromfed DM oral syrup, 5 mL, Oral, QID, PRN Mucinex 600 mg Tab-ER, 600 mg= 1 tab(s), Oral, q12hr Suboxone 8 mg-2 mg sublingual film, SubLingual Allergies No Known Allergies Social History Alcohol - Denies Alcohol Use, 06/29/2011 Substance Abuse - High Risk, 10/27/2019 Heroin, Daily, IV drug use: Yes. Drug use interferes with work/home: Yes. Ready to change: No., 10/27/2019 Tobacco Current Every Day Smoker, Cigarettes, 07/03/2014 Current, Cigarettes, 10 per day., 04/29/2011 Cigarettes, 03/24/2010 Lab Results First Test: YES (09/24/21 01:43:00) Employed in Healthcare: NO (09/24/21 01:43:00) Symptomatic as defined by CDC: YES (09/24/21 01:43:00) Hospitalized?: NO (09/24/21 01:43:00) ICU: NO (09/24/21 01:43:00) (more content not included)... [facility] Comment on above: Result Comment: Elec tronically Signed By: Alejandro Michele DO.br\Date and Time Signed: 09/24/21 04:20 EDT ED Patient Education Noteon 09-24-2021 ED Patient Education Note Infectious Disease Community-Acquired Pneumonia, Adult Pneumonia is a type of lung infection that causes swelling in the airways of the lungs. Mucus and fluid may also build up inside the airways. This may cause coughing and difficulty breathing. There are different types of pneumonia. One type can develop while a person is in a hospital. A different type is called community-acquired pneumonia. It develops in people who are not, and have not recently been, in the hospital or another type of health care facility. What are the causes? This condition may be caused by: ? Viruses. This is the most common cause of pneumonia. ? Bacteria. Community-acquired pneumonia is often caused by Streptococcus pneumoniae bacteria. These bacteria are often passed from one person to another by breathing in droplets from the cough or sneeze of an infected person. ? Fungi. This is the least common cause of pneumonia. What increases the risk? The following factors may make you more likely to develop this condition: ? Having a chronic disease, such as chronic obstructive pulmonary disease (COPD), asthma, congestive heart failure, cystic fibrosis, diabetes, or kidney disease. ? Having early-stage or late-stage HIV. ? Having sickle cell disease. ? Having had your spleen removed (splenectomy). ? Having poor dental hygiene. ? Having a medical condition that increases the risk of breathing in (aspirating) secretions from your own mouth and nose. ? Having a weakened body defense system (immune system). ? Being a smoker. ? Traveling to areas where pneumonia-causing germs commonly exist. ? Being around animal habitats or animals that have pneumonia-causing germs, including birds, bats, rabbits, cats, and farm animals. What are the signs or symptoms? Symptoms of this condition include: ? A dry cough. ? A wet (productive) cough. ? Fever. ? Sweating. ? Chest pain, especially when breathing deeply or coughing. ? Rapid breathing or difficulty breathing. ? Shortness of breath. ? Shaking chills. ? Fatigue. ? Muscle aches. How is this diagnosed? This condition may be diagnosed based on: ? Your medical history. ? A physical exam. You may also have tests, including: ? Chest X-rays. ? Tests of your blood oxygen level and other blood gases. ? Tests on blood, mucus (sputum), fluid around your lungs (pleural fluid), and urine. If your pneumonia is severe, other tests may be done to find the exact cause of your illness. How is this treated? Treatment for this condition depends on many factors, such as the cause of your pneumonia, the medicines you take, and other medical conditions that you have. For most adults, treatment and recovery from pneumonia may occur at home. In some cases, treatment must happen in a hospital. Treatment may include: ? Medicines that are given by mouth or through an IV, including: ? Antibiotic medicines, if the pneumonia was caused by bacteria. ? Antiviral medicines, if the pneumonia was caused by a virus. ? Being given extra oxygen. ? Respiratory therapy. Although rare, treating severe pneumonia may include: ? Using a machine to help you breathe (mechanical ventilation). This is done if you are not breathing well on your own and you cannot maintain a safe blood oxygen level. ? Thoracentesis. This is a procedure to remove fluid from around one lung or both lungs to help you breathe better. Follow these instructions at home: Medicines ? Take qggp-yaj-esazaig and prescription medicines only as told by your health care provider. ? Only take cough medicine if you are losing sleep. Be aware that cough medicine can prevent your body's natural ability to remove mucus from your lungs. ? If you were prescribed an antibiotic medicine, take it as told by your health care provider. Do not stop taking the antibiotic even if you start to feel better. General instructions ? Sleep in a semi-upright position at night. Try sleeping in a reclining chair, or place a few pillows under your head. ? Rest as needed and get at least 8 hours of sleep each night. ? Drink enough water to keep your urine pale yellow. This will help to thin out mucus secretions in your lungs. ? Eat a healthy diet that includes plenty of vegetables, fruits, whole grains, low-fat dairy products, and lean protein. ? Do not use any products that contain nicotine or tobacco, such as cigarettes, e-cigarettes, and chewing tobacco. If you need help quitting, ask your health care provider. ? Keep all follow-up visits as told by your health care provider. This is important. How is this prevented? You can lower your risk of developing community-acquired pneumonia by: ? Getting a pneumococcal vaccine. There are different types and schedules of pneumococcal vaccines. Ask your health care provider which option is best for you. Consider getting t (more content not included)... [facility] ED Patient Summaryon 021 ED Patient Summary [address] [address] Patient Discharge Instructions Person Information Name: SUSIE SHINE Age: 35 Years Arrival Date: 09/24/2021 01:16:20 Discharge Diagnosis: CAP (community acquired pneumonia) Primary Care Physician: Jacky Sutton DO Provider Information Primary Provider: Alejandro Michele DO Advanced Poker Machine Attendant:None The exam and treatment you received in the Emergency Department were for an urgent problem and are not intended as complete care. It is important that you follow up with a doctor, nurse practitioner, or physician?s assurance assistant for ongoing care. If your symptoms become worse or you do not improve as expected and you are unable to reach your usual health care provider, you should return to the Emergency Department. We are available 24 hours a day. SUSIE SHINE has been given the following list of patient education materials, prescriptions and follow-up instructions: Follow-up Instructions: With: Address: When: Jacky Sutton [address] [facility] [address] [place] [address] Business (1) In 3 days 2021 Comments: Return to ED if symptoms worsen In the event that this physician does not participate in your insurance network, please consult with your insurance company to find a nearby participating provider. Patient Education Materials: Community-Acquired Pneumonia, Adult A MESSAGE TO ALL PATIENTS REGARDING OPIOIDS PRESCRIPTION OPIOIDS: WHAT YOU NEED TO KNOW Prescription opioids can be used to help relieve akoyczjz-ux-kkszrt pain and are often prescribed following a surgery or injury, or for certain health conditions. These medications can be an important part of the treatment but also come with serious risks. It is important to work with your healthcare provider to make sure you are getting the safest, most effective care. WHAT ARE THE RISKS AND SIDE EFFECTS OF OPIOID USE? Prescription opioids carry serious risks of addiction and overdose, especially with prolonged use. An opioid overdose, often marked by slowed breathing, can cause sudden . The use of prescription opioids can have a number of side effects as well, even when taken as directed: ? Tolerance?meaning you might need to take more of the medication for the same pain relief ? Physical dependence?meaning you have symptoms of withdrawal when a medication is stopped ? Increased sensitivity to pain ? Constipation ? Nausea, vomiting, and dry mouth ? Sleepiness and dizziness ? Confusion ? Depression ? Low levels of testosterone that can result in lower sex drive, energy, and strength ? Itching and sweating RISKS ARE GREATER WITH: ? History of drug misuse, substance use disorder, or overdose ? Mental health conditions (such as depression or anxiety) ? Sleep apnea ? Older age (65 years and older) ? Avoid alcohol while taking prescription opioids. Also, unless specifically advised by your health care provider, medications to avoid include: ? Benzodiazepines (such as Xanax or Valium) ? Muscle relaxants (such as Soma or Flexeril) ? Hypnotics (such as Ambien or Lunesta) ? Other prescription opioids KNOW YOUR OPTIONS Talk to your health care provider about ways to manage your pain that don?t involve prescription opioids. Some of these options may actually work better and have fewer risks and side effects. Options may include: ? Pain relievers such as acetaminophen, ibuprofen, and naproxen ? Some medication that are also used for depression or seizures ? Physical therapy and exercise ? Cognitive behavioral therapy, a psychological, goal-directed approach, in which patients learn how to modify physical, behavioral, and emotional triggers of pain and stress. IF YOU ARE PRESCRIBED OPIOIDS FOR PAIN: ? Never take opioids in greater amounts or more often than prescribed. ? Follow up with your primary health care provider. o Work together to create a plan on how to manage your pain. o Talk about ways to help manage your pain that don?t involve prescription opioids. o Talk about any and all concerns and side effects. ? Help prevent misuse and abuse o Never sell or share prescription opioids. o Never use another person?s prescription opioids. ? Store prescription opioids in a secure place and out of reach of others (this may include visitors, children, friends, and family). ? Safely dispose of unused prescription opioids: Find your community drug take-back program or your pharmacy mail-back program, or flush them down the toilet, following guidance from the Food and Drug Administration (www.fda.gov/Drugs/Re sourcesForYou). ? Visit www.cdc.gov/drugoverd ose to learn about the risks of opioids abuse and overdose. ? If you believe you may be struggling with addiction, tell your health customer care specialist and ask for guidance or call [facility] (more content not included)... [facility] Prescriptions/Work Noteson 1 11-24-2020 Prescriptions/Work Notes [id number]# 1.00CD:127 [facility] Progress Note-Nurseon 2020 Progress Note-Nurse Discharge paperwork gone over with patient along with follow up care information. Patient aware of rx x 3 sent to pharmacy. Smoking cessation gone over with patient. [facility] XR Chest Single Viewon 09-24 XR Chest Single View Exam Date/Time: 09/24/2021 01:56 EDT Reason for Exam: Cough Report IMPRESSION: SUBTLE APPEARANCE, BUT THE POSSIBILITY OF A DIFFUSE MINIMAL INFILTRATIVE PROCESS IS RAISED. CLINICAL HISTORY: Cough. COMMENT: AP portable. The heart is normal in size. The mediastinum is unremarkable. There are indistinct slightly accentuated lung markings bilaterally, raising the possibility of a diffuse but minimal infiltrative processes. No consolidated airspace opacification nor pleural effusion is evident. FINAL REPORT Dictated: 09/24/2021 7:57 am Jose Luis Campo M.D. Signed (Electronic Signature): 09/24/2021 7:57 am Signed by: Jose Luis Campo M.D. Transcribed by: KRISHNA Technologist: IRMA [facility] Microscopic Urinalysison Amorphous, UA 2+ Abnormal None [facility] [place] [place] Bacteria, UA NOT REPORTED None [facility] [place] [place] Casts UA NOT REPORTED /LPF [facility] [place] Crystals UA NOT REPORTED None /HPF [facility] [place] Epithelial Cells UA 0 TO 2 [facility] [place] Interpretation and review of laboratory results Abnormal [facility] [place] Mucus, UA NOT REPORTED None [facility] [place], [place] Other Observations UA NOT REPORTED NOT REQ. [facility] [place], [place] RBC (U) [#/Vol] 0 TO 2 [facility] [place] [place] Renal Epithelial, Urine NOT REPORTED 0 /HPF [facility], [place] Trichomonas, UA NOT REPORTED None [facility] [place] WBC, UA 0 TO 2 [facility], [place] Yeast, UA NOT REPORTED None [facility], [place] - [facility], [place] UA w/Reflex Cultureon 2018 Acetoacetic Acid,Ur TRACE Abnormal NEG [facility] Comment on above: Performed By: #### U AX, UMICAO #### [facility] [address] [place], [place] [id number] Suction Drum Drier Operator: Corey Amezcua MD Bilirubin, SemiQt,Ur Negative Normal [facility] Comment on above: Performed By: #### U AX, UMICAO #### [facility] [address] [place] [address] Suction Drum Drier Operator: Corey Amezcua MD Color (U) YELLOW Normal YEL [facility] Comment on above: Performed By: #### U AX, UMICAO #### [facility] [address] [place] [address] Suction Drum Drier Operator: Corey Amezcua MD Glucose Ql (U) Negative Normal NEG [facility] Comment on above: Performed By: #### U AX, UMICAO #### [facility] [address] [place] [address] Suction Drum Drier Operator: Corey Amezcua MD Hemoglobin, Ur Negative Normal NEG [facility] Comment on above: Performed By: #### U AX, UMICAO #### [facility] [address] [place] [address] Suction Drum Drier Operator: Corey Amezcua MD Leukocyte esterase Test strip Ql (U) Negative Normal [facility] Comment on above: Performed By: #### U AX, UMICAO #### [facility] [address] [place] [address] Suction Drum Drier Operator: Corey Amezcua MD Nitrite,Ur Negative Normal NEG [facility] Comment on above: Performed By: #### U AX, UMICAO #### [facility] [address] [place], [place] [id number] Suction Drum Drier Operator: Corey Amezcua MD pH (U) 6.5 [pH] Normal 5.0-9.0 [facility] Comment on above: Performed By: #### U AX, UMICAO #### [facility] [address] [place], [place] [id number] Suction Drum Drier Operator: Corey Amezcua MD Protein Ql (U) Negative Normal NEG [facility] Comment on above: Performed By: #### U AX, UMICAO #### [facility] [address] [place], [place] [address] Suction Drum Drier Operator: Corey Amezcua MD Specific gravity (U) [Rel density] 1.020 Normal 1.010-1.020 [facility] Comment on above: Performed By: #### U AX, UMICAO #### [facility] [address] [place], [place] [address] Suction Drum Drier Operator: Corey Amezcua MD Turbidity CLEAR Normal CLEAR [facility] Comment on above: Performed By: #### U AX, UMICAO #### [address] [place], [place] [address] Suction Drum Drier Operator: Corey Amezcua MD Urobilinogen,Ur Normal Normal NORM [facility] Comment on above: Performed By: #### U AX, UMICAO #### [facility] [address] [place] [address] Suction Drum Drier Operator: Corey Amezcua MD Comment NOT REPORTED Normal [facility] Comment on above: Performed By: #### U AX, UMICAO #### [facility] [address] [place], [place] [address] Suction Drum Drier Operator: Corey Amezcua MD Urinalysis Reflex to Culture on 07-09-2019 Bilirubin Urine Negative NEGATIVE [facility] [place] [place] Color, UA YELLOW YELLOW [place], [place] Glucose, Ur Negative NEGATIVE [place] Interpretation and review of laboratory results Abnormal [place], [place] Ketones Ql (U) TRACE Abnormal NEGATIVE [place], [place] Leukocyte esterase Test strip Ql (U) Negative NEGATIVE [place] Nitrite, Urine Negative NEGATIVE [place], [place] pH, UA 6.5 [place], [place] Protein (U) [Mass/Vol] Negative NEGATIVE [place] Specific [place], UA 1.020 [place], [place] Turbidity UA CLEAR CLEAR [place], [place] Urinalysis Comments NOT REPORTED [place], [place] Urine Hgb Negative NEGATIVE [place] Urobilinogen, Urine Normal Normal [place] Urinalysis,Microon 9 ----- Normal [facility] Comment on above: Performed By: #### U AX, UMICAO #### [facility] [address] [place] [address] [place] [address] Suction Drum Drier Operator: Corey Amezcua MD Amorphous sediment LM Ql (Urine sed) 2+ Abnormal NONE [facility] Comment on above: Performed By: #### U AX, UMICAO #### [address] [place] [address] Suction Drum Drier Operator: Corey Amezcua MD Epithelial cells LM.HPF (Urine sed) [#/Area] 0 TO 2 Normal 0-5 [facility] Comment on above: Performed By: #### U AX, UMICAO #### [facility] [address] [place] [address] Suction Drum Drier Operator: Corey Amezcua MD RBC (U) [#/Vol] 0 TO 2 Normal 0-2 [facility] Comment on above: Performed By: #### U AX, UMICAO #### [facility] [address] [place] [address] Suction Drum Drier Operator: Corey Amezcua MD WBC (U) [#/Vol] 0 TO 2 Normal 0-5 [facility] Comment on above: Performed By: #### U AX, UMICAO #### [facility] [address] [place] [address] Suction Drum Drier Operator: Corey Amezcua MD Bacteria LM.HPF (Urine sed) [#/Area] NOT REPORTED Normal NONE [facility] Comment on above: Performed By: #### U AX, UMICAO #### [facility] [address] [place] [id number] Suction Drum Drier Operator: Corey Amezcua MD Casts LM.LPF (Urine sed) [#/Area] NOT REPORTED Normal [facility] Comment on above: Performed By: #### U AX, UMICAO #### [facility] [address] [place] [id number] Suction Drum Drier Operator: Corey Amezcua MD Crystals LM Nom (Urine sed) NOT REPORTED Normal [facility] Comment on above: Performed By: #### U AX, UMICAO #### [facility] [address] [place] [address] Suction Drum Drier Operator: Corey Amezcua MD Epithelial, Renal NOT REPORTED Normal 0 [facility] Comment on above: Performed By: #### U AX, UMICAO #### [facility] [address] [place] [address] Suction Drum Drier Operator: Corey Amezcua MD Mucus Strands NOT REPORTED Normal NONE [facility] Comment on above: Performed By: #### U AX, UMICAO #### [facility] [address] [place] [address] Suction Drum Drier Operator: Corey mAezcua MD Other Observations NOT REPORTED Normal NREQ [facility] Comment on above: Performed By: #### U AX, UMICAO #### [facility] [address] [place] [id number] Suction Drum Drier Operator: Corey Amezcua MD Trichomonas NOT REPORTED Normal NONE [facility] Comment on above: Performed By: #### U AX, UMICAO #### [facility] [address] [place] [address] Suction Drum Drier Operator: Corey Amezcua MD Yeast LM Ql (Urine sed) NOT REPORTED Normal NONE [facility] Comment on above: Performed By: #### U AXALEKSICAO #### [facility] [address] [place] [address] Suction Drum Drier Operator: Corey Amezcua MD Otheron 12-14-[address] [place] [address] Vital Signs Date Time Vital Sign Value Performing Clinician Gayathrii opal 09-06-2019 16:44-0400 BMI (Body Mass Index) 24.5 kg/m2 [facility] Work Phone: 09-06-2019 16:44-0400 Body Temperature 95.7 [degF] [facility] Work Phone: 09-06-2019 16:44-0400 Body weight 79.56 kg [facility] Work Phone: 09-06-2019 16:44-0400 BP Diastolic 80 mm[Hg] [facility] Work Phone: 09-06-2019 16:44-0400 BP Systolic 120 mm[Hg] [facility] Work Phone: 09-06-2019 16:44-0400 BSA (Body Surface Area) 1.99 m2 [facility] Work Phone: 09-06-2019 16:44-0400 Height 180.34 cm [facility] Work Phone: 09-06-2019 16:44-0400 Pulse (Heart Rate) 87 /min [facility] Work Phone: 09-06-2019 16:44-0400 Pulse Oximetry 95 % [facility] Work Phone: 09-06-2019 16:44-0400 Respiratory Rate 18 /min [facility] Work Phone: 07-09-2019 19:13-0400 BP Diastolic 81 mm[Hg] [facility] [place] 07-09-2019 19:13-0400 BP Systolic 134 mm[Hg] [facility] [place] 07-09-2019 19:13-0400 Pulse (Heart Rate) 85 /min [facility] 07-09-2019 17:53-0400 BMI (Body Mass Index) 25.09 kg/m2 [facility] 07-09-2019 17:53-0400 Body Temperature 97.7 [degF] [facility] 07-09-2019 17:53-0400 Body weight 83.[address] [facility] [place] 07-09-2019 17:53-[address] [facility] [place] 07-09-2019 17:53-0400 Pulse Oximetry 97 % [facility] [place] 07-09-2019 17:53-0400 Respiratory Rate 16 /min [facility] 04-11-2019 16:26-0400 BMI (Body Mass Index) 25.7 kg/m2 [facility] Work Phone: 04-11-2019 16:26-0400 Body Temperature 96.3 [degF] [facility] Work Phone: 04-11-2019 16:26-0400 Body weight 83.55 kg [facility] Work Phone: 04-11-2019 16:26-0400 BP Diastolic 82 mm[Hg] [facility] Work Phone: 04-11-2019 16:26-0400 BP Systolic 124 mm[Hg] [facility] Work Phone: 04-11-2019 16:26-0400 BSA (Body Surface Area) 2.04 m2 [facility] Work Phone: 04-11-2019 16:26-0400 Height 180.34 cm [facility] Work Phone: 04-11-2019 16:26-0400 Pulse (Heart Rate) 78 /min [facility] Work Phone: 04-11-2019 16:26-0400 Pulse Oximetry 99 % [facility] Work Phone: 04-11-2019 16:26-0400 Respiratory Rate 18 /min [facility] Work Phone: 12-14-2018 15:37-0500 BMI (Body Mass Index) 25.85 kg/m2 [facility] 12-14-2018 15:37-0500 Body Temperature 96.3 [degF] [facility] 12-14-2018 15:37-0500 Body weight 84.09 kg Willy [facility] 12-14-2018 15:37-0500 BP Diastolic 78 mm[Hg] [facility] 12-14-2018 15:37-0500 BP Systolic 122 mm[Hg] [facility] 12-14-2018 15:37-0500 BSA (Body Surface Area) 2.05 m2 [facility] 12-14-2018 15:37-0500 Height 180.34 cm [facility] 12-14-2018 15:37-0500 [facility] Rate) 83 /[facility] 12-14-2018 15:37-0500 Pulse Oximetry 98 % [facility] 12-14-2018 15:37-0500 Respiratory Rate 18 /min [facility] 12-14-2018 15:37-0500 Weight 84.09 kg [facility] 12-14-2018 13:37-0500 BMI (Body Mass Index) 25.9 kg/m2 [facility] Work Phone: 12-14-2018 13:37-0500 Body Temperature 96.3 [degF] [facility] Work Phone: 12-14-2018 13:37-0500 Body weight 84.09 kg [facility] Work Phone: 12-14-2018 13:37-0500 BP Diastolic 78 mm[Hg] [facility] Work Phone: 12-14-2018 13:37-0500 BP Systolic 122 mm[Hg] [facility] Work Phone: 12-14-2018 13:37-0500 BSA (Body Surface Area) 2.04 m2 [facility] Work Phone: 12-14-2018 13:37-0500 Height 180.34 cm [facility] Work Phone: 12-14-2018 13:37-0500 Pulse (Heart Rate) 83 /min [facility] Work Phone: 12-14-2018 13:37-0500 Respiratory Rate 18 /min [facility] Work Phone: 11-30-2018 16:40-0500 BMI (Body Mass Index) 25.24 kg/m2 [facility] 11-30-2018 16:40-0500 Body Temperature 97.1 [degF] [facility] 11-30-2018 16:40-0500 Body weight 82.1 kg Willy Pena [facility] 11-30-2018 16:40-0500 BP Diastolic 84 mm[Hg] [facility] 11-30-2018 16:40-0500 BP Systolic 124 mm[Hg] [facility] 11-30-2018 16:40-0500 BSA (Body Surface Area) 2.03 m2 [facility] 11-30-2018 16:40-0500 Height 180.34 cm [facility] 11-30-2018 16:40-0500 Pulse (Heart Rate) 86 /min [facility] 11-30-2018 16:40-0500 Pulse Oximetry 98 % [facility] 11-30-2018 16:40-0500 Respiratory Rate 22 /min [facility] 11-30-2018 16:40-0500 Weight 82.1 kg [facility] 11-30-2018 14:40-0500 BMI (Body Mass Index) 25.2 kg/m2 [facility] Work Phone: 11-30-2018 14:40-0500 Body Temperature 97.1 [degF] [facility] Work Phone: 11-30-2018 14:40-0500 [facility] Work Phone: 11-30-2018 14:40-0500 BP Diastolic 84 mm[Hg] [facility] Work Phone: 11-30-2018 14:40-0500 BP Systolic 124 mm[Hg] [facility] Work Phone: 11-30-2018 14:40-0500 BSA (Body Surface Area) 2.02 m2 [facility] Work Phone: 11-30-2018 14:40-0500 Height 180.34 cm [facility] Work Phone: 11-30-2018 14:40-0500 Pulse (Heart Rate) 86 /min [facility] Work Phone: 11-30-2018 14:40-0500 Respiratory Rate 22 /min [facility] Work Phone: 11-02-2018 12:38-0500 BMI (Body Mass Index) 26.36 kg/m2 Willy Pena [facility] 11-02-2018 12:38-0500 Body Temperature 98.7 [degF] Willy Pena [facility] 11-02-2018 12:38-0500 Body weight 85.73 kg Willy Pena [facility] 11-02-2018 12:38-0500 BP Diastolic 72 mm[Hg] Willy Pena [facility] 11-02-2018 12:38-0500 BP Systolic 106 mm[Hg] Willy Pena [facility] 11-02-2018 12:38-0500 BSA (Body Surface Area) 2.07 m2 Willy Pena [facility] 11-02-2018 12:38-0500 Height 180.34 cm Willy Pena [facility] 11-02-2018 12:38-0500 Pulse (Heart Rate) 77 /min Willy Pena [facility] 11-02-2018 12:38-0500 Pulse Oximetry 98 % Willy Pena [facility] 11-02-2018 12:38-0500 Respiratory Rate 20 /min Willy Pena [facility] 11-02-2018 12:38-0500 Weight 85.73 kg Willy Pena [facility] 11-02-2018 10:38-0500 BMI (Body Mass Index) 26.4 kg/m2 [facility] Work Phone: 11-02-2018 10:38-0500 Body Temperature 98.7 [degF] [facility] Work Phone: 11-02-2018 10:38-0500 Body weight 85.73 kg [facility] Work Phone: 11-02-2018 10:38-0500 BP Diastolic 72 mm[Hg] [facility] Work Phone: 11-02-2018 10:38-0500 BP Systolic 106 mm[Hg] [facility] Work Phone: 11-02-2018 10:38-0500 BSA (Body Surface Area) 2.06 m2 [facility] Work Phone: 11-02-2018 10:38-0500 Height 180.34 cm [facility] Work Phone: 11-02-2018 10:38-0500 Pulse (Heart Rate) 77 /min [facility] Work Phone: 11-02-2018 10:38-0500 Respiratory Rate 20 /min [facility] Work Phone: Encounters Encounter Date Encounter Type Care Provider Facility Start: 09-06-2019 End: 09-06-2019 Established patient Willy Pena Work Phone: [facility] Work Phone: Start: 09-06-2019 End: 09-06-2019 Established patient Mira Newton Work Phone: [facility] Work Phone: Start: 07-09-2019 End: 07-09-2019 Emergency department [facility] Start: 07-09-2019 End: 07-09-2019 Emergency department patient visit Hao Aurora Michelle Work Phone: [facility] Comment on above: Impacted cerumen of left ear (Primary Dx); Acute right-sided low back pain without sciatica Start: 06-28-2019 End: 06-28-2019 Emergency department patient [facility] Start: 04-11-2019 End: 04-11-2019 Established patient Willy Pena Work Phone: [facility] Work Phone: Start: 04-11-2019 End: 04-11-2019 Established patient Mira Newton Work Phone: [facility] Work Phone: Start: 04-07-2019 End: 04-07-2019 Emergency department patient visit [facility] Start: 01-23-2019 End: 01-23-2019 Patient encounter procedure Mira Newton Work Phone: [facility] Work Phone: Start: 12-14-2018 Behavioral Health Willy duke Other [facility] Start: 12-14-2018 Medical Mira Newton Other [facility] Start: 12-14-2018 Office outpatient vi sit 15 minutes Mira Newton Other [facility] Start: 12-14-2018 End: 12-14-2018 Patient encounter procedure Mira Newton [facility] Work Phone: Start: 11-30-2018 Behavioral Health Willy duke Other [facility] Start: 11-30-2018 Office outpatient vi sit 15 minutes Mira Newton Other [facility] Start: 11-30-2018 End: 12-04-2018 Patient encounter procedure [facility] Start: 11-02-2018 Behavioral Health Willy duke Other [facility] Start: 11-02-2018 End: 11-02-2018 Patient encounter procedure Mira Newton [facility] Work Phone: Start: 11-02-2018 Tobacco use cessatio n intermediate 3-10 minutes Willy Pena [facility] Start: 11-02-2018 Office outpatient ne w 20 minutes Mira Newton Other [facility] Procedures Date Procedure Procedure Detail Performing Clinician Start: 09-06-2019 Diast bp 80-89 mm hg mary anne Newton Work Phone: Start: 09-06-2019 Psychotherapy w/christal ent 30 minutes Willy Pena Work Phone: Start: 09-06-2019 Pt-focused hlth risk assmt score doc stnd instrm Mira Newton Work Phone: Start: 09-06-2019 Syst bp lt 130 mm hg mary anne Newton Work Phone: Start: 07-09-2019 Urinalysis microscop ic only MIRA NEWTON Start: 07-09-2019 Urnls dip stick/tabl et rgnt auto w/o microscopy MIRA NEWTON Start: 07-09-2019 Urinalysis microscop ic only Hao E Eitchbreana Work Phone: Start: 07-09-2019 Urnls dip stick/tabl et rgnt auto w/o microscopy Hao E Eitches Work Phone: Start: 04-11-2019 ANXIETY DISORDER NOS mary anne Newton Start: 04-11-2019 DEPRESSION Mira prater Start: 04-11-2019 OPIOID-RELATED DISORDERS Mira Newton Start: 04-11-2019 past medical/surgica l history [use for free text] Mira Newton Start: 04-11-2019 PSYCHIATRIC DISORDERS A kishan Newton Start: 04-11-2019 Psychotherapy w/christal ent 30 minutes Willy Pena Work Phone: Start: 04-11-2019 UNSPECIFIED DRUG DEPENDENCE Mira Newton Start: 12-14-2018 Psychotherapy w/christal ent 30 minutes Willy Pena Start: 11-30-2018 Psychotherapy w/christal ent 30 minutes Mira Newton Start: 11-02-2018 End: 11-02-2018 Psychotherapy w/patient 30 minutes Willy Pena Start: 11-02-2018 Brief Intervention Anthony Pena Start: 11-02-2018 PHQ9 Administered Roberto Pena Start: 11-02-2018 SBIRT- Full Screen *POSITIVE* Referred to Provider Willy Pena Start: 11-02-2018 Screening, Brief Intervention, Referral and Treatment Willy Pena NEGATED: Highlighted row has not occurred!Start: 04-11-2019 reported medical history Mira Newton Plan of Treatment Date Care Activity Detail Author Start: 07-23-2019 Influenza vaccination Flu vaccine (# 1) [place], [place] Start: 04-11-2019 [facility] Work Phone: Comment on above: Note: Please make a referral to: Payers Date Payer Category Payer Medicaid [id number] 2017 Private Health Insurance [id number] 2017 Private Health Insurance [facility] [address] [employer] xxxxxxxxx 2017-Present [phone] [address] [place] [address] xxxxxxxxx [id number] 1986 Unknown [id number] 1986 Unknown [id number] 1986 Unknown [id number] 1986 Unknown [id number] Social History Date Type Detail Facility Start: [facility] Start: Current every day smoker [facility] Assertion Stress (finding) [facility] Work Phone: Assertion Single person (finding) [facility] Work Phone: Assertion Opiate misuse (finding) [facility] Work Phone: Assertion Emotional stress (finding) [facility] Work Phone: Assertion Sexually active (finding) [facility] Work Phone: Assertion Gender identity finding (finding) [facility] Work Phone: Assertion Finding of sexua l orientation (finding) [facility] Work Phone: Assertion Tobacco user (finding) [facility] Work Phone: Tobacco smoking status Unknown if ever smoked [facility] Work Phone: Sex Assigned At Not on file [facility] [place] NEGATED: Highlighted row Assertion Tobacco user (finding) [facility] Work Phone: NEGATED: Highlighted row Assertion Current drinker of alcohol (finding) [facility] Work Phone: NEGATED: Highlighted row Assertion Finding relating to drug misuse behavior (finding) [facility] Work Phone: NEGATED: Highlighted row Assertion Exposure to pollution (event) [facility] Work Phone: Mental Status Date Assessment Result Facility Cognitive function Cognitive fun ctioning was normal Cognitive function finding (finding) [facility] Work Phone: Summary Purpose Family History No Family History Records Found Description Last Updated No significant medical history in nuclea r family 04/11/2019 Advance Directives No Advanced Directives Records FoundDocuments on File Type Date Recorded 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 Advance Directives and Living Will Power of Baker Reason for Referral No Reason for Referral RecordedNo Reason for Referral Recorded Assessments Findings Encounter Date F11.10 - Opioid abuse uncomplicated BH E stablished Patient with Willy Pena [facility] 09/06/2019 Generalized anxiety disorder BH Establis hed Patient with Willy Pena [facility] 09/06/2019 Severe recurrent major depre ssion without psychotic features Established Patient with Willy Pena [facility] 09/06/2019 Diabetes Risk Test Score was one score M edical Established Patient with Mira Newton [facility] 09/06/2019 Z68.24 - Body mass index (BM I) 24.0-24.9 adult Medical Established Patient with Mira My [facility] 09/06/2019 Generalized anxiety disorder BH Establis hed Patient with Willy Pena [facility] 04/11/2019 Severe recurrent major depre ssion without psychotic features Established Patient with Willy Pena [facility] 04/11/2019 Assess depression with anxiety Medical E stablished Patient with Mira Newton [facility] 04/11/2019 Body mass index Medical Established Patient with Miralaura Veraen [facility] 04/11/2019 Overweight Medical Established Patient with Mira My [facility] 04/11/2019 Diagnosis Impacted cerumen of left ear- Primary Impacted cerumen Acute right-sided low back pain without sciatica Instructions Instructions not supported for this document type No Instructions Recorded Instructions not supported for this document type No Instructions Recorded History of Present Illness History of Present Illness not supported for this document type No History of Present Illness Recorded History of Present Illness not supported for this document type No History of Present Illness Recorded Review of System Review of Systems not supported for this document type No Review of Systems Recorded Review of Systems not supported for this document type No Review of Systems Recorded Physical Exam Physical Exam not supported for this document type No Physical Exam Recorded Physical Exam not supported for this document type No Physical Exam Recorded Discharge Instructions * Attachments The following attachments cannot be sent through Care Everywhere. * Back Pain ([place]) documented in this encounter Additional Source Comments (unrecognized sect ion and content) No Status Records FoundNo Status Records FoundNo Status Records Found INFORMATION SOURCE (unrecogn ized section and content) DATE CREATED AUTHOR 12/07/2018 [facility] DATE CREATED AUTHOR AUTHOR'S ORGANIZ ATION 07/09/2019 Terese [facility] DATE CREATED AUTHOR AUTHOR'S ORGANIZ ATION 02/27/2022 [facility] Evaluations & Outcomes (unre cognized section and content) Includes: Evaluations & Outcomes for active GoalsNo Outcomes Recorded Includes: Evaluations & Outcomes for active GoalsNo Outcomes Recorded Reason for Visit (unrecogniz ed section and content) Reason Comments Flank Pain Right, onset 3-4 day s ago Otalgia Left, onset yesterda y FOR RECORDS PERTAINING TO PATIENTS WHO ARE OR HAVE BEEN ENROLLED IN A CHEMICAL DEPENDENCY/SUBSTANCEABUSE PROGRAM, SOME INFORMATION MAY BE OMITTED. This clinical summary was aggregated from multiple sources. Caution should be exercised in using it in the provision of clinical care. This summary normalizes information from multiple sources, and as a consequence, information in this document may materially change the coding, format and clinical context of patient data. In addition, data may be omitted in some cases. CLINICAL DECISIONS SHOULD BE BASED ON THE PRIMARY CLINICAL RECORDS. [employer] provides no warranty or guarantee of the accuracy or completeness of information in this document.
[2025-09-08 21:08] VITALS: BP 169/101; PULSE 100; TEMP 37; O2SAT 100; BMI 27.1
--- NOTE | 2025-09-08 21:37 | ED_ITS ---
HPI HPI - General Adult General Chief complaint: Skin/Abscess/Foreign Body Stated complaint: Lower Pain Time Seen by Provider: 09/08/25 20:50 Source: patient Mode of arrival: walk-in History of Present Illness HPI narrative: 39-year-old male presents here with a chief complaint of cellulitis of the right lower extremity. He was seen and admitted at [facility] last evening for sepsis and cellulitis of the right lower extremity. He states today he felt like they were not helping him despite him getting IV antibiotics. He signed himself out this evening went home and took a shower and then came here to the emergency room. He has an open abscess that is currently draining area on his right lower extremity that is marked does not appear to be streaking past the marked that the facility had placed on the leg. He states he was getting vancomycin and was due for another dose of vancomycin at 9:00 tonight. Patient is no longer febrile or nauseous. Patient states she does have a history of drug use IV drug use but has not used in several years, continues to take suboxone Related Data Home Medications ?Medication ?Instructions ?Recorded ?Confirmed buprenorphine 8 mg-naloxone 2 mg 1 film buccal BID 09/08/25 sublingual film Previous Rx's ?Medication ?Instructions ?Recorded clindamycin HCl 300 mg capsule 300 mg PO Q8H 10 days # 30 caps 09/08/25 sulfamethoxazole 800 1 tab PO DAILY 10 days #10 t abs 09/08/25 mg-trimethoprim 160 mg tablet (Bactrim DS) Allergies Allergy/AdvReac Type Severity Reaction Status Date / Time No Known Drug Allergies Allergy Verified 05/02/24 20:51 Opioid HPI Opioid Management Most Recent Opioid Data: Last Pain Scale 8 03/10/24, 00:01 Review of Systems ROS Status of ROS 10 or more systems reviewed and unremark able except as noted in history and below Exam Narrative Exam Narrative: All Systems are negative except as noted/marked.All systems reviewed and otherwise negative Nurses note and vital signs reviewed and patient is not hypoxic. General: The patient appears well and in no apparent distress. Patient is resting comfortably on cart. Skin: Warm, dry, no pallor noted. There is no rash noted. Head: Normocephalic, atraumatic Cardiovascular: Regular Rate and Rhythm Respiratory: Patient is in no distress, no accessory muscle use, lungs are clear to auscultation, no wheezing, rales or rhonchi Back: non-tender, no CVA tenderness bilaterally to percussion. GI: Normal bowel sounds, no tenderness to palpation, no masses appreciated. No rebound, guarding, or rigidity noted. Musculoskeletal: Right lower extremity cellulitis, open abscess currently draining purulent fluid, pulses intact, area is marked where cellulitis had been. The patient has no evidence of calf tenderness, no pitting edema, symmetrical pulses noted bilaterally Neurological: A&O x4, normal speech Psychiatric: Cooperative Constitutional Vital Signs, click to edit/add: Last Vital Signs Temp 98.6 F 09/08/25 21:08 Pulse 100 H 09/08/25 21:08 Resp 18 09/08/25 21:08 BP 155/73 H 09/08/25 22:47 Pulse Ox 100 09/08/25 21:08 O2 Del Method Room Air 09/08/25 21:08 Course Vital Signs Vital signs: Vital Signs Temperature 98.6 F 09/08/25 21:08 Pulse Rate 100 H 09/08/25 21:08 Respiratory Rate 18 09/08/25 21:08 Blood Pressure 169/101 H 09/08/25 21:08 Pulse Oximetry 100 09/08/25 21:08 Oxygen Delivery Method Room Air 09/08/25 21:08 Temperature 98.6 F 09/08/25 21:08 Pulse Rate 100 H 09/08/25 21:08 Respiratory Rate 18 09/08/25 21:08 Blood Pressure 155/73 H 09/08/25 22:47 Pulse Oximetry 100 09/08/25 21:08 Oxygen Delivery Method Room Air 09/08/25 21:08 Medical Decision Making [facility] Narrative Medical decision making narrative: 39-year-old male presents here with a chief complaint of cellulitis of the right lower extremity. He was seen and admitted at [facility] last evening for sepsis and cellulitis of the right lower extremity. He states today he felt like they were not helping him despite him getting IV antibiotics. He signed himself out this evening went home and took a shower and then came here to the emergency room. He has an open abscess that is currently draining area on his right lower extremity that is marked does not appear to be streaking past the marked that the facility had placed on the leg. He states he was getting vancomycin and was due for another dose of vancomycin at 9:00 tonight. Patient is no longer febrile or nauseous. Patient states she does have a history of drug use IV drug use but has not used in several years, continues to take suboxone . Patient presenting here to the emergency room after signing himself out against medical vice at [facility]. Nursing staff is unable to establish IV here as he has had a history of IV drug use and has a lot of scarring noted. He states he is a hard stick and was able to receive an IV at the facility he was at Via ultrasound to the upper extremity. Nurses here are unable to do so. Patient does feel better vital signs are stable he is no longer febrile or tachycardic or tachypneic. I reviewed patient's past medical records from yesterday's admission. He does appear much better at this point. Patient agrees to take oral antibiotics. Based on vital signs at this time I feel he is stable to be discharged home patient does wish to be discharged home he will come back to the emergency room for recheck in 24 hours will be started clindamycin and Bactrim. Reasons to return to the emergency room were discussed including any streaking or movement of the redness past the marking he has on his leg. Differential Diagnosis Differential Diagnosis: cellulitis, abscess Medical Records Medical records reviewed: Yes I reviewed the patient's medical records Discharge Plan Discharge Chief Complaint: Skin/Abscess/Foreign Body Clinical Impression: Cellulitis and abscess of right lower extremity Patient Disposition: Home, Self-Care Time of Disposition Decision: 21:57 Condition: Good Prescriptions / Home Meds: New clindamycin HCl 300 mg capsule 300 mg PO Q8H 10 Days Qty: 30 0RF sulfamethoxazole-trimethoprim [Bactrim DS] 800-160 mg tablet 1 tab PO DAILY 10 Days Qty: 10 0RF No Action buprenorphine-naloxone 8-2 mg film 1 film buccal BID Print Language: Citizen Of [place] Instructions: Abscess (ED) Additional Instructions: return to ed in 24 hours for recheck and follow up with primary care physcian in 2 days. take antibiotics until they are completely gone Referrals: Physician,Non-Staff, [Primary Care Provider] - 1 week Discharge Date/Time: 09/08/25 22:50
[2025-09-08] MEDS: IBUPROFEN 400 MG TABLET 800 MG PO (22:21)
[2025-09-08] MEDS: SULFAMETHOXAZOLE/TRIMETHOPRIM 800-160 MG TABLET 1 TAB PO (22:22)
[2025-09-08] MEDS: CLINDAMYCIN HCL 150 MG CAPSULE 300 MG PO (22:22)
[2025-09-08 22:47] VITALS: BP 155/73
== END 2025-09-08 22:50 | disposition home or self-care (01) ==
PROVIDERS: Emergency Provider Internal Medicine; Family Provider Family Medicine
DX: L03.115 Cellulitis of right lower limb (principal); L02.415 Cutaneous abscess of right lower limb; F11.20 Opioid dependence, uncomplicated
CPT/HCPCS: 80053; 83605; 87040; 99284